=== PATIENT | female | born 1995 | race American Indian/Alaskan Native ===

== ENCOUNTER 2022-01-23 11:13 | Emergency (ER) | payer BC ==
[2022-01-23 11:41] VITALS: BP 130/75
== END 2022-01-23 15:12 | disposition left against medical advice (07) ==
LOC: ED 11:13
DX: T14.8XXA Other injury of unspecified body region, initial encounter (principal); Z53.21 Procedure and treatment not carried out due to patient leaving prior to being seen by health care provider; W54.0XXA Bitten by dog, initial encounter; Y93.89 Activity, other specified; Y92.89 Other specified places as the place of occurrence of the external cause; Y99.8 Other external cause status